=== PATIENT | female | born 1965 | race African-American/Black ===

== ENCOUNTER 2019-11-10 00:27 | Inpatient (IN) ==
[2019-11-10 01:52] LABS: ABG Base Excess 1.3 MMOL/L (-2.5-2.5); ABG HCO3 25.4 MMOL/L (20-26); ABG Oxygen Saturation 93.1 % (95-100); ABG PCO2 35.6 MM HG (35-48); ABG PH 7.451 (7.35-7.45); ABG PO2 66.6 MM HG (80-95); ABG TCO2 21.7 MMOL/L (23-27); Allen Test Positive; Pt O2 Delivery Device Room Air
[2019-11-10 02:09] LABS: Calcium 9.3 MG/DL (8.5-10.1); Osmolality,Calculated 275.2 MOS/KG (273-304)
[2019-11-10] MEDS ORDERED: GLUCAGON 1 MG VIAL IM PRN (03:08)
[2019-11-10] MEDS ORDERED: hydrALAZINE 20 MG/1 ML VIAL IV PRN (03:08)
[2019-11-10] MEDS ORDERED: ACETAMINOPHEN 325 MG TABLET PO PRN (03:08)
[2019-11-10] MEDS ORDERED: diphenhydrAMINE CAP 25 MG CAPSULE PO PRN (03:08)
[2019-11-10] MEDS ORDERED: guaiFENesin/DM ER 600-30 MG TABLET PO PRN (03:08)
[2019-11-10] MEDS ORDERED: NICOTINE 21 MG/24 HR PATCH TRANSDERM PRN (03:08)
[2019-11-10] MEDS ORDERED: ONDANSETRON 4 MG/2 ML VIAL IV PRN (03:08)
[2019-11-10] MEDS ORDERED: ALUMINUM/MAGNES/SIMETH MAX STR 30 ML UDCUP PO PRN (03:08)
[2019-11-10] MEDS ORDERED: DEXTROSE 50% 25 GM/50 ML VIAL IV PRN (03:08)
[2019-11-10 04:44] LABS: Basophils % 0.2 % (0.0-0.8); Eosinophils % 0.1 % (0.00-10.9); Hematocrit 39.7 VOL% (35.7-47.0); Hemoglobin 12.7 GM/DL (12.0-16.0); Immature Granulocytes % 1.1 %; Lymphocytes # 1.9 10*3/uL (1.4-4.0); Lymphocytes % 20.8 % (21.3-54.2); Mean Corpuscular Volume 90.8 FL (87-102); Mean Platelet Volume 12.1 FL (9.6-12.0); Neutrophils % 70.8 % (38.7-73.9); Platelet Count 207 T/CUMM (130-400); Red Blood Count 4.37 MC/CUMM (3.8-5.5); Red Cell Distribution Width 13.1 % (9.3-17.3); White Blood Count 9.2 T/CUMM (4-12)
[2019-11-10 05:34] LABS: Hypochromasia 1+; Platelet Estimate Adequate
[2019-11-10] MEDS: INSULIN REGULAR 100 UNIT/ML SUBCUT SCH ×4 (05:44→23:45)
[2019-11-10] MEDS ORDERED: HYDROXYCHLOROQUINE 200 MG TABLET PO SCH (09:00)
[2019-11-10] MEDS ORDERED: ZINC SULFATE 220 MG CAPSULE PO SCH (09:00)
[2019-11-10] MEDS: AZITHROMYCIN 250 MG TABLET PO SCH (12:23)
[2019-11-10] MEDS: metFORMIN 500 MG TABLET PO SCH (17:33)
[2019-11-10] MEDS: glipiZIDE 5 MG TABLET PO SCH (17:33)
[2019-11-11] MEDS: INSULIN REGULAR 100 UNIT/ML SUBCUT SCH ×3 (06:55→12:32)
[2019-11-11 08:44] LABS: Basophils % 0.2 % (0.0-0.8); Eosinophils % 0.5 % (0.00-10.9); Hematocrit 37.7 VOL% (35.7-47.0); Immature Granulocytes Absolute 0.06 #; Lymphocytes # 2.1 10*3/uL (1.4-4.0); Lymphocytes % 35.3 % (21.3-54.2); Mean Corpuscular HGB Conc 31.8 GM/DL (32-36); Mean Corpuscular Volume 90.4 FL (87-102); Mean Platelet Volume 11.2 FL (9.6-12.0); Monocytes % 8.9 % (1.7-12.7); Neutrophils % 54.1 % (38.7-73.9); Platelet Count 245 T/CUMM (130-400); Red Blood Count 4.17 MC/CUMM (3.8-5.5); Red Cell Distribution Width 13.1 % (9.3-17.3); White Blood Count 6.1 T/CUMM (4-12)
[2019-11-11] MEDS ORDERED: HYDROXYCHLOROQUINE 200 MG TABLET PO SCH (09:00)
[2019-11-11] MEDS: metFORMIN 500 MG TABLET PO SCH (09:15)
[2019-11-11] MEDS: glipiZIDE 5 MG TABLET PO SCH (09:15)
[2019-11-11] MEDS: AZITHROMYCIN 250 MG TABLET PO SCH (09:15)
[2019-11-11 09:20] LABS: Atypical Lymphocytes Few; Eosinophils 1 % (0-10); Hypochromasia 1+; Lymphocytes 41 % (20-55); Platelet Estimate Adequate; Segmented Neutrophils 49 % (50-85); Total Cells Counted 100
[2019-11-11 09:23] LABS: Calcium 9.2 MG/DL (8.5-10.1); Osmolality,Calculated 269.2 MOS/KG (273-304)
[2019-11-11 12:44] VITALS: BP 121/77
== END 2019-11-11 15:00 | disposition home or self-care (01) | DRG 177 ==
LOC: N.ED 00:27 → N.EDINP 03:03 → N.2W 03:37
PROVIDERS: ADMIT Family Medicine; ATTEND Family Medicine